=== PATIENT | female | born 1980 | race Caucasian/White ===

== ENCOUNTER 2018-08-17 01:37 | Observation (INO) | payer OTHER ==
[~2018-08-17] VITALS: Ht 157.5 cm; Wt 90.7 kg
[~2018-08-17 01:37] MED LIST: ALBU90OI INH; BENZ100A PO; Prednisone20 MG PO; Zithromax250 MG PO
[2018-08-17 03:07] LABS: Influenza A Negative (NEGATIVE); Influenza B Negative (NEGATIVE)
[2018-08-17 04:04] LABS: BASOPHILS ABSOLUTE AUTO 0.05 K/mm3 (0.00-0.23); BASOPHILS PERCENT AUTO 0 % (0-2); EOSINOPHILS PERCENT AUTO 2 % (0-6); Hematocrit 41.9 % (33.0-51.0); Hemoglobin 12.9 g/dL (11.5-16.0); IMMATURE GRAN ABSOLUTE AUTO 0.05 K/mm3 (0.00-0.10); IMMATURE GRAN PERCENT AUTO 0 % (0-1); LYMPHOCYTES ABSOLUTE AUTO 4.46 K/mm3 (0.84-5.20); LYMPHOCYTES PERCENT AUTO 30 % (21-46); MONOCYTES ABSOLUTE AUTO 0.81 K/mm3 (0.16-1.47); MONOCYTES PERCENT AUTO 6 % (4-13); Mean Corpuscular HGB 25.5 pg (26.0-34.0); Mean Corpuscular HGB Conc 30.8 g/dL (31.5-36.5); Mean Corpuscular Volume 83 fL (80-100); Mean Platelet Volume 10.6 fL (9.1-12.4); NEUTROPHILS ABSOLUTE AUTO 9.19 K/mm3 (1.96-9.15); NEUTROPHILS PERCENT AUTO 62 % (41-73); Platelet Count 369 K/mm3 (150-400); RDW Coefficient Variation 17.2 % (11.7-14.2); RDW Standard Deviation 51.6 fL (35.1-46.3); Red Blood Cell Count 5.05 M/mm3 (3.80-5.20); White Blood Cell Count 14.86 K/mm3 (4.00-11.30)
[2018-08-17 04:24] LABS: Alanine Aminotransfer (ALT/SGP 21 U/L (12-78); Albumin/Globulin Ratio 0.9 (0.8-1.8); Alk Phos 95 U/L (50-136); Anion Gap 7 mmol/L (6-16); Aspartate Aminotrans (AST/SGOT 18 U/L (12-37); Bilirubin, Total 0.3 mg/dL (0.1-1.0); Blood Urea Nitrogen 11 mg/dL (8-24); Bun/Creatinine Ratio 17.7 (12.0-20.0); CO2, Blood 30 mmol/L (21-32); Chloride, Blood 102 mmol/L (98-108); Creatinine, Blood 0.62 mg/dL (0.40-1.00); Globulin, Blood 4.7 g/dL (2.2-4.0); Glomerular Filtration Rate >60 (60-); Glucose, Blood 106 mg/dL (70-99); Potassium, Blood 3.4 mmol/L (3.5-5.5); Sodium, Blood 139 mmol/L (136-145); Total Protein, Blood 8.7 g/dL (6.4-8.2)
[2018-08-17] MEDS ORDERED: LISI20 PO (14:01)
[2018-08-17] MEDS ORDERED: METO50 PO (14:01)
== END 2018-08-17 15:00 | disposition home or self-care (01) ==
LOC: ER 01:37 → ERHOLD 01:38
PROVIDERS: Emergency Medicine; ADMIT Internal Medicine
DX: I16.1 Hypertensive emergency (principal); I11.0 Hypertensive heart disease with heart failure; I50.9 Heart failure, unspecified; E78.00 Pure hypercholesterolemia, unspecified; R77.8 Other specified abnormalities of plasma proteins; F17.210 Nicotine dependence, cigarettes, uncomplicated; R94.31 Abnormal electrocardiogram [ECG] [EKG]; Z88.8 Allergy status to other drugs, medicaments and biological substances; Z91.14 Patient's other noncompliance with medication regimen; Z79.52 Long term (current) use of systemic steroids; Z79.899 Other long term (current) drug therapy
CPT/HCPCS: 36415; 71275; 74175; 80053; 84484; 85025; 87804; 93005; 93010; 93306; 96365-59; 96366-59; 96372-59; 96375-59; 99285-25; G0378; J0360; J1200; J1650; J1885; J3480; Q9967